=== PATIENT | female | born 1950 | race Caucasian/White ===

== ENCOUNTER 2016-05-20 13:09 | Outpatient (CLI) | payer OTHER | END 2016-05-20 20:10 | disposition home or self-care (01) | LOC: SMA 13:09 | PROVIDERS: ATTEND General Practice | DX: Z12.31 Encounter for screening mammogram for malignant neoplasm of breast (principal) | CPT/HCPCS: 77067; G0202 ==

== ENCOUNTER 2017-08-19 07:43 | Outpatient (CLI) | payer OTHER | END 2017-08-19 19:27 | disposition home or self-care (01) | LOC: SMA 07:43 | PROVIDERS: ATTEND Physician Assistant Medical | DX: Z12.31 Encounter for screening mammogram for malignant neoplasm of breast (principal) | CPT/HCPCS: 77067 ==

== ENCOUNTER 2018-08-01 09:20 | Outpatient (CLI) | payer OTHER | END 2018-08-01 21:10 | disposition home or self-care (01) | LOC: SMA 09:20 | PROVIDERS: ATTEND Physician Assistant Medical | DX: Z12.31 Encounter for screening mammogram for malignant neoplasm of breast (principal) | CPT/HCPCS: 77067 ==

== ENCOUNTER 2020-05-23 10:41 | Outpatient (CLI) | payer OTHER | END 2020-05-23 20:00 | disposition home or self-care (01) | LOC: SMA 10:41 | PROVIDERS: ATTEND Family Medicine | DX: Z12.31 Encounter for screening mammogram for malignant neoplasm of breast (principal) | CPT/HCPCS: 77067 ==

== ENCOUNTER 2021-08-13 14:19 | Outpatient (CLI) | payer OTHER | END 2021-08-13 20:46 | disposition home or self-care (01) | LOC: SMA 14:19 | PROVIDERS: ATTEND Family Medicine | DX: Z12.31 Encounter for screening mammogram for malignant neoplasm of breast (principal) | CPT/HCPCS: 77067 ==

== ENCOUNTER 2022-04-09 09:01 | Outpatient (CLI) | payer OTHER | END 2022-04-09 21:20 | disposition home or self-care (01) | LOC: SMA 09:01 | PROVIDERS: ATTEND Family Medicine | DX: Z12.31 Encounter for screening mammogram for malignant neoplasm of breast (principal) | CPT/HCPCS: 77067 ==

== ENCOUNTER 2022-08-08 18:10 | Emergency (ER) | payer OTHER ==
[~2022-08-08] VITALS: Ht 157.5 cm; Wt 65.8 kg
[2022-08-08 18:35] VITALS: BP_SYST 126
--- NOTE | 2022-08-08 18:55 | NUR ---
Placed in room 2 . Placed on employment case manager, blood pressure machine and pulse oximeter. To gown for exam. Side rails up. Yonatan triaged and presented to physician for MSE. Patient with pain 09/21. blood sugar taken -- result 207.
--- NOTE | 2022-08-08 19:00 | NUR ---
ER Dr.DE COLIN at bedside examining patient.
[2022-08-08] MEDS ORDERED: AMIO200T66 PO (19:10)
[2022-08-08] MEDS ORDERED: CLON0.1T (19:10)
[2022-08-08] MEDS ORDERED: AMLO2.5T50 PO (19:10)
[2022-08-08] MEDS ORDERED: SITA25TA3 PO (19:10)
[2022-08-08] MEDS ORDERED: CYAN1TAB71 (19:10)
[2022-08-08] MEDS ORDERED: PANC1POW PO (19:10)
[2022-08-08] MEDS ORDERED: MV W1TAB4 (19:10)
[2022-08-08] MEDS ORDERED: LISI5TAB PO (19:10)
[2022-08-08] MEDS ORDERED: PRAV10TA PO (19:10)
[2022-08-08] MEDS ORDERED: VIT1CAPS46 PO (19:10)
[2022-08-08] MEDS ORDERED: METAMUCIL0.52 GM PO (19:10)
[2022-08-08] MEDS ORDERED: VITA180C6 (19:10)
[2022-08-08] MEDS ORDERED: AMLO5TAB4 PO (19:10)
[2022-08-08] MEDS ORDERED: MAGN400T39 PO (19:10)
--- NOTE | 2022-08-08 19:50 | NUR ---
PT CONNECTED TO VS MONITOR, NO COMPLAINTS EVEN UNLABORED VSS. AWAITING RESULTS FROM CT. MD AWARE OF PT STATUS.
[2022-08-08] MEDS ORDERED: ACET-2634 PO (23:03)
[2022-08-08] MEDS ORDERED: AUG875 PO (23:03)
[2022-08-08 23:19] VITALS: BP_SYST 110
--- NOTE | 2022-08-08 23:20 | NUR ---
Patient given written and verbal discharge instructions and verbalizes understanding. ER MD discussed with patient the results and treatment provided. Patient in stable condition. ID arm band removed. Rx of TYLENOL XTRA STRENGTH, AND AUGMENTIN given. Patient educated on LYMPHANGITIS pain management and to follow up with PMD. Pain Scale 0. Opportunity for questions provided and answered. Medication side effect fact sheet provided.
== END 2022-08-08 23:15 | disposition home or self-care (01) ==
LOC: SED 18:10
DX: L04.0 Acute lymphadenitis of face, head and neck (principal); R22.1 Localized swelling, mass and lump, neck; Z79.899 Other long term (current) drug therapy
CPT/HCPCS: 70490; 76376; 82962; 99284

== ENCOUNTER 2023-09-02 10:02 | Outpatient (CLI) | payer OTHER ==
[~2023-09-02 10:02] MED LIST: ACET-2634 PO; AMIO200T66 PO; AMLO2.5T50 PO; AMLO5TAB4 PO; AUG875 PO; CLON0.1T; CYAN1TAB71; LISI5TAB PO; MAGN400T39 PO; METAMUCIL0.52 GM PO; MV W1TAB4; PANC1POW PO; PRAV10TA PO; SITA25TA3 PO; VIT1CAPS46 PO; VITA180C6
== END 2023-09-02 20:39 | disposition home or self-care (01) ==
LOC: SMA 10:02
PROVIDERS: ATTEND Physician Assistant Medical
DX: Z12.31 Encounter for screening mammogram for malignant neoplasm of breast (principal); R92.333 Mammographic heterogeneous density, bilateral breasts
CPT/HCPCS: 77067